=== PATIENT | female | born 1990 | race Caucasian/White ===

== ENCOUNTER → 2016-04-22 | Outpatient (CLI) | payer OTHER ==
--- NOTE | 2016-04-22 17:06 | US ---
Dear Rochelle Smith CNM, Thank you for sending your patient, Aileen Kilpatrick, to us for a follow-up US to assess interval growth. As you know, the patient is a 25 y.o. G2, P1001 at 29 weeks and 2 days with an EDC of 07/06/16 based on a 7 week US. Her is complicated by borderline growth with EFW ranging from 10-16%ile, remote Zika exposure with negative serologies, and a history of preeclampsia in her 1st pr egnancy. Genetic Screening: NIPT reassuring The patient denies any uterine contractions, vaginal bleeding, or loss of fluid. She reports excellen t movement. Today, she is without complaints. US FINDINGS: Number of fetuses: 1 Placental location: Posterior, no previa presentation: Cephalic Cervix: 3.5 cm, transabdominally MVP: 3.3 cm Measurements: Biparietal diameter: 70 mm, 28 weeks 1 days Head circumference: 262 mm, 28 weeks 4 days Abdominal circumference: 254 mm, 29 weeks 4 days Femur length: 52 mm, 28 weeks 0 days Humerus length: 47 mm, 27 weeks 5 days Transcerebellar diameter: 35 mm, 29 weeks 1 days Cerebral Lateral Ventricle: 3.6 mm Cisterna Magna: 4.1 mm Heart Rate: 126 bpm Average ultrasound age: 28 weeks 4 days Estimated weight: 1289 g weight percentile: 22 % Anatomy: anatomy was previously assessed. Today the following structures were visualized and appeared n ormal: lateral ventricles, posterior fossa, 4CH view, stomach, kidneys, and bladder. IMPRESSION: Growth: Today, the fetus measures appropriate for gestational age, measuring at a normal weight and p ercentile. Visualization of the fetus continues to reveal no overt structural anomalies. In particula r, the intracranial anatomy continues to appear reassuring. There is evidence of normal amniotic flui d, and movement was seen during the examination. - No further US growth assessment is indicated unless the patient develops elevated blood pressures o r measures small for dates Thank you again for sending this patient to see us today. Approximately 15 minutes were spent with th is patient today with 12 minutes of this time spent in direct face to face counseling regarding today 's US findings and our recommendations. Please contact me with any questions at . Abigail Patterson MD Maternal- Medicine
--- NOTE | 2016-04-23 18:27 | US ---
Ultrasound Obstetric Follow Up Indication: The estimated gestational age by LMP is 29 weeks and 2 days yielding an EDC of July 06, 2016. Comparison: February 2016 Findings: Number: 1 Presentation: Vertex Placental Location: Posterior without previa Cervix: 3.5 cm Amniotic MVP: 3.3 cm BIOMETRY: Biparietal Diameter: 69.79 mm 28 weeks, 1 days Head Circumference: 261.84 mm 28 weeks, 4 days Abdominal Circumference: 253.78 mm 29 weeks, 4 days Femur Length: 52.46 mm 28 weeks, 0 days Humerus Length: 46.92 mm 27 weeks, 5 days Transcerebellar Diameter: 34.81 mm 29 weeks, 1 days HC/AC: 1.03 (0.99-1.21) FL/BPD: 75% FL/AC: 21% Average Ultrasound Age: 28 weeks, 4 days EDC based on today's average ultrasound age: July 11, 2016 Estimated weight is 1289 gms +/- 188 gms. The estimated weight is at the 22 % based on pr evious dating. ANATOMY: Previous evaluated. FHR 126 bpm. Today's limited anatomy demonstrates lateral ventricles, four-chamber heart, stomach, ki dneys, and bladder. Impression: 1. Living stevenson in vertex presentation. 2. Size concordant with dates. 3. Appropriate interval growth. 4. Please see Dr. Abigail Patterson's consult and recommendations.
== END ==
LOC: FIMAGING 12:26
PROVIDERS: ATTEND Midwife
DX: Z36 Encounter for antenatal screening of mother (principal); Z3A.28 28 weeks gestation of pregnancy

== ENCOUNTER 2016-06-23 00:26 | Observation (INO) | payer OTHER ==
[2016-06-23] MEDS ORDERED: FAMOTIDINE 20 MG/NACL 50 ML IV ONE (00:48)
[2016-06-23] MEDS ORDERED: ONDANSETRON 4 MG/2 ML VIAL IVP ONE (00:49)
--- NOTE | 2016-06-23 00:51 | SOAPPROG ---
SOAP Progress Note Assessment/Plan: Assessment: 38w1d Gastroenteritis Dehydrated: 3+ ketones, maternal tachycardia status reassuring Plan: D5LR bolus LR @ 125 ml/hr IV pepcid 20 ml Zofran 4 mg discharge when tolerating po Advise rest, tea, warm compresses, mucinex, tylenol at home will check cervix prior to discharge, pt declines right now as she is feeling sick 06/23/16 00:54 06/23/16 01:04 Subjective: 38w1d, , Here for nausea/vomiting/diarrhea, started earlier today, got worse this evening. Temp to 100 at home. Now with emesis when trying to drink water. No LOF, VB. + BH. Active baby. Low risk , previously had SGA and low lying placenta, both resolved. H/o mild preeclampsia at term. Also with a lot of sinus pressure. Her 3 year old has been sick at home. Never did take zofran at home as she was worried about headache. Objective: 118/74 Temp 37.4 Pulse: 120s-130s FHR baseline 150s, mod rozina, + accels, no decel [place]: rare contraction Gen: alert, awake, NAD Resp: unlabored CV: tachycardia Abd: soft, nontender Ext: no edema ICD10 Worksheet Patient Problems: Problems Problem Status Onset 38 weeks gestation of Acute Gastroenteritis Acute - ICD10 Problem Qualifiers (1) Gastroenteritis (2) 38 weeks gestation of
[2016-06-23] MEDS ORDERED: LR 1,000 ML IV SCH (01:00)
[2016-06-23] MEDS ORDERED: D5W LR 1,000 ML IV SCH (01:00)
[2016-06-23] MEDS ORDERED: ACETAMINOPHEN 500 MG TAB PO ONE (02:09)
[2016-06-23 02:21] LABS: % IMMATURE GRANULYOCYTES 0.3 % (0.0-1.1); ABSOLUTE IMMATURE GRANULOCYTES 0.03 10^3/uL (0.00-0.10); ADD DIFF? NO; HEMATOCRIT 40.5 % (38.0-47.0); HEMOGLOBIN 13.9 g/dL (12.6-16.3); LEFT SHIFT FLG 0 (0-99); MEAN CELL HEMOGLOBIN 31.6 pg (27.9-34.1); MEAN CELL HEMOGLOBIN CONCENTR. 34.3 g/dL (32.4-36.7); MEAN PLATELET VOLUME 11.4 fL (8.7-11.7); PLATELET COUNT 217 10^3/uL (150-400); RED CELL DISTRIBUTION WIDTH 13.7 % (11.5-15.2)
[2016-06-23 02:22] LABS: ADD MORPH? NO; ADD SCAN? NO; ATYPICAL LYMPHOCYTE FLAG 10 (0-99); FRAGMENT RBC FLAG 0 (0-99); LIPEMIA HEMOLYSIS FLAG 90 (0-99); PLATELET CLUMPS FLAG 10 (0-99)
[2016-06-23 02:23] LABS: ALANINE AMINOTRANSFERASE 36 IU/L (9-52); ALBUMIN 4.1 g/dL (3.5-5.0); ALKALINE PHOSPHATASE 238 IU/L (38-126); ANION GAP 15 mEq/L (8-16); ASPARTATE AMINOTRANSFERASE 42 IU/L (14-46); BILIRUBIN,TOTAL 1.2 mg/dL (0.1-1.4); CALCIUM 9.5 mg/dL (8.5-10.4); CARBON DIOXIDE 19 mEq/l (22-31); CHLORIDE 107 mEq/L (97-110); CREATININE 0.6 mg/dL (0.6-1.0); GLOMERULAR FILTRATION RATE > 60; GLUCOSE 83 mg/dL (70-100); POTASSIUM 3.9 mEq/L (3.5-5.2); SODIUM 141 mEq/L (134-144); TOTAL PROTEIN 7.2 g/dL (6.3-8.2)
[2016-06-23] MEDS ORDERED: AZITHROMYCIN 250 MG TAB PO ONE (04:19)
== END 2016-06-23 07:00 | disposition home or self-care (01) ==
LOC: FLD 00:26
PROVIDERS: ADMIT Obstetrics & Gynecology; ATTEND Obstetrics & Gynecology
DX: Z34.83 Encounter for supervision of other normal pregnancy, third trimester (principal); K52.9 Noninfective gastroenteritis and colitis, unspecified; R00.0 Tachycardia, unspecified; Z3A.38 38 weeks gestation of pregnancy
CPT/HCPCS: G0378; J2405

== ENCOUNTER → 2016-06-26 | Outpatient (CLI) | payer OTHER | LOC: FIMAGING 08:09 | PROVIDERS: ATTEND Midwife | DX: Z34.83 Encounter for supervision of other normal pregnancy, third trimester (principal); Z3A.38 38 weeks gestation of pregnancy; Z20.89 Contact with and (suspected) exposure to other communicable diseases ==

== ENCOUNTER 2016-06-30 16:37 | Inpatient (IN) | payer OTHER ==
[2016-06-30] MEDS ORDERED: OLIVE OIL 118 ML BTL MISC PRN (17:49)
[2016-06-30] MEDS ORDERED: LR 1,000 ML IV PRN (17:49)
[2016-06-30] MEDS ORDERED: TERBUTALINE SULFATE 1 MG/ML VIAL IV PRN (17:49)
[2016-06-30] MEDS ORDERED: EPSOM SALT 454 GM TP PRN (17:49)
[2016-06-30] MEDS ORDERED: OXYTOCIN/RINGERS LACTATE 1,000 ML IV PRN (17:49)
[2016-06-30] MEDS ORDERED: LIDOCAINE 1% 30 ML SDV SC PRN (17:49)
[2016-06-30] MEDS ORDERED: ZOLPIDEM TARTRATE 5 MG TAB PO PRN (17:51)
[2016-06-30] MEDS ORDERED: ACETAMINOPHEN 650 MG/20.3 ML UDCUP PO PRN (17:54)
[2016-06-30] MEDS ORDERED: CALCIUM CARBONATE 500 MG CHEWABLE TAB PO PRN (17:55)
--- NOTE | 2016-06-30 17:59 | PDGENHP ---
History and Physical - Chief Complaint 25 y.o. at 39 1/7 weeks for IOL for borderline SGA and low ANDRIY. - History of Present Illness 25 y.o. presents at 39 1/7 weeks for IOL for borderline SGA and low ANDRIY. History Information - Allergies/Home Medication List Allergies/Adverse Reactions: No Known Allergies Allergy (Unverified 02/11/13 16:17) Home Medications: 1 tab PO DAILY 02/11/13 [Last Taken 06/21/16] Aspirin 81mg (*) 1 tab PO DAILY 06/23/16 [Last Taken 06/21/16] I have personally reviewed and updated: family history, medical history, social history, surgical history - Past Medical History no pertinent PMH - Surgical History Reports: no pertinent surgical hx - Social History Smoking Status: Never smoked Alcohol Use: None Drug Use: None Review of Systems ROS: 10pt was reviewed & negative except for what was stated in HPI & below Constitutional: Reports: no symptoms EENMT: Reports: no symptoms Cardiac: Reports: no symptoms Respiratory: Reports: no symptoms Gastrointestinal: Reports: no symptoms Genitourinary: Reports: no symptoms Muscolosketal: Reports: no symptoms Skin: Reports: no symptoms Neurological: Reports: no symptoms Hematologic/Lymphatic: Reports: no symptoms Immunologic/Allergy: Reports: no symptoms Physical Exam Constitutional: no apparent distress Ears, Nose, Mouth, Throat: moist mucous membranes Cardiovascular: regular rate and rhythym, no murmur, rub, or gallop Respiratory: no respiratory distress, no rales or rhonchi Gastrointestinal: normoactive bowel sounds, soft, non-tender abdomen Genitourinary: no bladder fullness Skin: warm, normal color Musculoskeletal: full muscle strength Neurologic: AAOx3 Psychiatric: interacting appropriately Assessment & Plan Assessment: 25 y.o. at 39 1/7 weeks for IOL for borderline SGA and low ANDRIY. VSS- afebrile NST- reactive CAT I Saenz bulb for IOL Plan: Admit patient to L&D. Routine admit labs. VS and EFM per protocol. Saenz bulb placed for IOL. Plan to begin pitocin at 0500.
[2016-06-30] MEDS ORDERED: diphenhydrAMINE 25 MG CAP PO PRN (18:21)
[2016-06-30 19:06] LABS: % IMMATURE GRANULYOCYTES 0.3 % (0.0-1.1); ABSOLUTE IMMATURE GRANULOCYTES 0.03 10^3/uL (0.00-0.10); ADD DIFF? NO; ADD MORPH? NO; ADD SCAN? NO; ATYPICAL LYMPHOCYTE FLAG 60 (0-99); FRAGMENT RBC FLAG 0 (0-99); HEMATOCRIT 37.6 % (38.0-47.0); HEMOGLOBIN 12.8 g/dL (12.6-16.3); LEFT SHIFT FLG 0 (0-99); LIPEMIA HEMOLYSIS FLAG 90 (0-99); MEAN CELL HEMOGLOBIN 31.1 pg (27.9-34.1); MEAN CELL VOLUME 91.5 fL (81.5-99.8); MEAN PLATELET VOLUME 10.8 fL (8.7-11.7); PLATELET CLUMPS FLAG 0 (0-99); PLATELET COUNT 271 10^3/uL (150-400); RED BLOOD CELL COUNT 4.11 10^6/uL (4.18-5.33); RED CELL DISTRIBUTION WIDTH 13.9 % (11.5-15.2)
[2016-06-30] MEDS ORDERED: ACETAMINOPHEN 325 MG TAB PO PRN (19:34)
[2016-07-01] MEDS ORDERED: fentaNYL 2MCG/ML/BUP 0.1% RTU 100 ML BAG EP ONE (02:01)
[2016-07-01] MEDS ORDERED: BUPIVACAINE 0.25% 30 ML SDV ONE (02:01)
[2016-07-01] MEDS ORDERED: fentaNYL 100 MCG/2 ML INJ ONE (02:02)
[2016-07-01] MEDS ORDERED: PHENYLEPHRINE HCL 100 MCG/ML SYR ONE (02:02)
[2016-07-01] MEDS ORDERED: ONDANSETRON 4 MG/2 ML VIAL IVP PRN (02:46)
[2016-07-01] MEDS ORDERED: NALOXONE HCL 0.4 MG/ML INJ IVP PRN (02:46)
[2016-07-01] MEDS ORDERED: PHENYLEPHRINE HCL 100 MCG/ML SYR IVP PRN (02:46)
[2016-07-01] MEDS ORDERED: LR 500 ML IV PRN (02:47)
[2016-07-01] MEDS ORDERED: OXYTOCIN/RINGERS LACTATE 500 ML IV SCH ×2 (03:00→05:00)
[2016-07-01] MEDS ORDERED: LR 500 ML IV SCH (03:00)
[2016-07-01] MEDS ORDERED: fentaNYL 2MCG/ML/BUP 0.1% RTU 100 ML EP SCH (03:00)
[2016-07-01] MEDS: CALCIUM CARBONATE 500 MG CHEWABLE TAB PO PRN ×2 (03:04→06:07)
[2016-07-01] MEDS ORDERED: LIDOCAINE 1% 30 ML SDV ONE (07:05)
[2016-07-01] MEDS ORDERED: MISOPROSTOL 200 MCG TAB ONE (07:06)
[2016-07-01] MEDS ORDERED: OLIVE OIL 118 ML BTL ONE (07:06)
[2016-07-01] MEDS ORDERED: TERBUTALINE SULFATE 1 MG/ML VIAL ONE (07:06)
[2016-07-01] MEDS ORDERED: AMMONIA AROMATIC 1 EACH AMP IH ONE (07:06)
[2016-07-01] MEDS ORDERED: OXYTOCIN 10 UNIT/ML VIAL ONE (07:06)
[2016-07-01] MEDS ORDERED: FAMOTIDINE 20 MG in NS 100 ML IV ONE (07:30)
[2016-07-01] MEDS ORDERED: FAMOTIDINE 20 MG/NACL 50 ML IV ONE (07:30)
--- NOTE | 2016-07-01 07:35 | OBPROG ---
OBG Progress Note Assessment/Plan: Assessment: 25 y.o. female at 39 2/7 weeks for IOL for borderline SGA and low ANDRIY. Saenz bulb placed and fell out at 0100. Pitocin started at 0200 and currently at 12 mu. SVE- 5.5/80/-2 with AROM of moderate amount of blood-tinged fluid. Plan: Continue IOL with pitocin currently at 12 mu. EFM and VS per protocol. Anticipate . 07/01/16 07:32 Subjective: Reports increased pelvic pressure. SVE- 5.5/80/-2 BBOW with AROM of moderate amount of blood-tinged fluid noted. Patient comfortable with CALEB in place. Objective: 06/30/16 18:00 Patient ABO/Rh O POSITIVE 06/30/16 18:00 - SVE Dilation (cm): 5 Effacement (%): 80 Station: -2 Current Contraction Pattern: Regular FHR (bpm): 140 FHR Pattern Variability: Moderate FHR Category: 2 Membranes: AROM Amniotic Fluid Color: Blood Tinged - Physical Exam General Appearance: WD/WN, alert Estimated Weight: 2501-3400g EENT: PERRL/EOMI, normal ENT inspection Neck: non-tender, full range of motion Respiratory: lungs clear, normal breath sounds Cardiac/Chest: regular rate, rhythm Abdomen: non-tender, soft Membranes: AROM Amniotic Fluid Color: blood tinged Extremities: normal range of motion, non-tender Back: Normal inspection Skin: normal color, warm/dry Neuro/Psych: alert, normal mood/affect, oriented x 3 ICD10 Worksheet Patient Problems: Problems Problem Status Onset 38 weeks gestation of Acute Gastroenteritis Acute
--- NOTE | 2016-07-01 09:16 | OBPROG ---
OBG Progress Note Assessment/Plan: Assessment: 25 y.o. female at 39 2/7 weeks for IOL for borderline SGA and low ANDRIY. Saenz bulb placed and fell out at 0100. Pitocin started at 0200 and currently at 15 mu. SVE- 9/100/-1 with AROM of moderate amount of blood-tinged fluid. Plan: Continue IOL with pitocin currently at 15 mu. EFM and VS per protocol. Anticipate . 07/01/16 07:32 07/01/16 09:14 Subjective: Patient reports experiencing more pressure and discomfort. CALEB in place with moderate pain relief. VS and EFM reassuring. Objective: 06/30/16 18:00 Patient ABO/Rh O POSITIVE 06/30/16 18:00 - SVE Dilation (cm): 9 Effacement (%): 100 Station: -1 Current Contraction Pattern: Regular FHR (bpm): 140 FHR Pattern Variability: Moderate FHR Category: 2 Membranes: AROM Amniotic Fluid Color: Blood Tinged - Physical Exam General Appearance: WD/WN, alert Estimated Weight: 2501-3400g EENT: normal ENT inspection Neck: non-tender, full range of motion, normal inspection Respiratory: lungs clear, normal breath sounds Cardiac/Chest: regular rate, rhythm Abdomen: non-tender, soft Membranes: AROM Amniotic Fluid Color: blood tinged Extremities: normal range of motion, non-tender Back: Normal inspection Skin: normal color, warm/dry Neuro/Psych: alert, normal mood/affect, oriented x 3 ICD10 Worksheet Patient Problems: Problems Problem Status Onset 38 weeks gestation of Acute Gastroenteritis Acute
[2016-07-01] MEDS ORDERED: HYDROCODONE/APAP 5/325 TAB PO PRN (10:15)
[2016-07-01] MEDS ORDERED: SIMETHICONE 80 MG TAB CHEW PO PRN (10:15)
[2016-07-01] MEDS ORDERED: HYDROCORTISONE 0.5% CREAM TP PRN (10:15)
--- NOTE | 2016-07-01 10:18 | OBPROC ---
- Labor and Delivery Onset of Contractions Date: 07/01/16 Onset of Contractions Time: 03:00 Onset of Contractions Type: Induced Rupture of Membranes Date: 07/01/16 Rupture of Membranes Time: 07:20 Rupture of Membranes Type: Artificial Amniotic Fluid Color: Blood Tinged Dilation Complete Time: 09:30 Delivery Type: Spontaneous Placenta Delivery Date: 07/01/16 Placenta Delivery Time: 09:54 Episiotomy/Laceration: 1st Degree Repair: 3-0, Vicryl EBL: 350 Complications: None - Medications Labor Augmentation/Induction Meds Used: Pitocin Labor Augmentation/Induction Indication: Other (Specify) (SGA/ low ANDRIY) Anesthesia: Epidural - [place] Info Infant A Delivery Date: 07/01/16 Delivery Time: 09:47 Sex of Infant: Female Score (1 Min): 8 Score (5 Min): 9
[2016-07-01] MEDS: IBUPROFEN 600 MG TAB PO PRN ×3 (11:07→23:00)
[2016-07-01 14:57] VITALS: TEMP 98
[2016-07-01] MEDS: DOCUSATE SODIUM 100 MG CAP PO PRN ×2 (17:20→20:37)
[2016-07-01 20:43] VITALS: BP 102/65; PULSE 82; RESP 17; O2SAT 96
[2016-07-02] MEDS: IBUPROFEN 600 MG TAB PO PRN (04:40)
[2016-07-02 04:45] LABS: % IMMATURE GRANULYOCYTES 0.3 % (0.0-1.1); ABSOLUTE IMMATURE GRANULOCYTES 0.05 10^3/uL (0.00-0.10); ADD DIFF? NO; ADD MORPH? NO; ADD SCAN? NO; ATYPICAL LYMPHOCYTE FLAG 30 (0-99); FRAGMENT RBC FLAG 0 (0-99); HEMOGLOBIN 12.5 g/dL (12.6-16.3); LEFT SHIFT FLG 0 (0-99); LIPEMIA HEMOLYSIS FLAG 80 (0-99); MEAN CELL HEMOGLOBIN 30.5 pg (27.9-34.1); MEAN CELL HEMOGLOBIN CONCENTR. 32.9 g/dL (32.4-36.7); MEAN CELL VOLUME 92.7 fL (81.5-99.8); MEAN PLATELET VOLUME 10.4 fL (8.7-11.7); PLATELET CLUMPS FLAG 0 (0-99); PLATELET COUNT 232 10^3/uL (150-400); RED CELL DISTRIBUTION WIDTH 13.8 % (11.5-15.2)
--- NOTE | 2016-07-02 08:42 | OBGCSDC ---
General Delivery Information - General Info : 2 Para: 2 Delivery Date: 07/01/16 Delivery Time: 09:47 Delivery Physician/CNM: Rochelle Smith Admission Date: 06/30/16 Labs: Patient ABO/Rh O POSITIVE 06/30/16 18:00 Hct 38.0 % (38.0-47.0) 07/02/16 04:30 - [place] Info A Sex of : Female Score (1 Min): 8 Score (5 Min): 9 Vaginal - Diagnosis IUP (Weeks): 39 2/7 Labor: Induced Rupture of Membranes Type: Artificial Amniotic Fluid Color: Blood Tinged Repair: 3-0, Vicryl Complications: None - Operations/Procedures Delivery Type: Spontaneous Procedures: Amniotomy Anesthesia: Epidural - Delivery EBL: 350 Anesthesia: Epidural Discharge Information - Discharge Information Discharge Medications: Ibuprofen, Vitamins, Vicodin Condition: Good Instruction/Follow Up: Six Weeks Discharge Physician/CNM: Rochelle Smith Discharge Date: 07/02/16 Dictated: No
[2016-07-02] MEDS: DOCUSATE SODIUM 100 MG CAP PO PRN (09:40)
[2016-07-02] MEDS ORDERED: MEASLES,MUMPS&RUBELLA VACC/PF 0.5 ML VIAL SC ONE (10:05)
== END 2016-07-02 13:15 | disposition home or self-care (01) | DRG 775 ==
LOC: FLD 16:37 → FOB 07-01 12:59
PROVIDERS: ADMIT Midwife; ATTEND Midwife
PROC: 0HQ9XZZ Repair Perineum Skin, External Approach (ICD-10-PCS; principal; 2016-07-01)
PROC: 10E0XZZ Delivery of Products of Conception, External Approach (ICD-10-PCS; principal; 2016-07-01)
PROC: 0U7C7DZ Dilation of Cervix with Intraluminal Device, Via Natural or Artificial Opening (ICD-10-PCS; principal; 2016-07-01)
PROC: 3E033VJ Introduction of Other Hormone into Peripheral Vein, Percutaneous Approach (ICD-10-PCS; principal; 2016-07-01)
PROC: 10907ZC Drainage of Amniotic Fluid, Therapeutic from Products of Conception, Via Natural or Artificial Opening (ICD-10-PCS; principal; 2016-07-01)
DX: O41.02X0 Oligohydramnios, second trimester, not applicable or unspecified (principal); O70.0 First degree perineal laceration during delivery; Z3A.39 39 weeks gestation of pregnancy; Z37.0 Single live birth
CPT/HCPCS: J2370; J2590; J3010; J3105